=== PATIENT | male | born 1940 | race Caucasian/White ===

== ENCOUNTER 2021-02-12 10:01 | Inpatient (IN) | payer MEDICARE, BC ==
--- NOTE | 2021-02-12 11:00 | CT ---
EXAMINATION TYPE: CT brain quiana guzman DATE OF EXAM: 02/12/2021 COMPARISON: NONE HISTORY: headache and neck pain post fall over a week ago. CT DLP: 1685.1 mGycm. Automated Exposure Control for Dose Reduction was Utilized. TECHNIQUE: CT scan of the head and cervical spine are performed without contrast. FINDINGS: There is no acute intracranial hemorrhage or midline shift identified. Mild ventricular a nd sulcal prominence. Moderate low attenuation in the deep and periventricular white matter. The calv arium is intact. Mild mucosal thickening involving ethmoid and superior maxillary sinuses. The globes appear intact. Cervical spine is visualized in its entirety from C1 through upper thoracic levels and demonstrates s traightens alignment without evidence of acute fracture or dislocation. Prevertebral soft tissue dmitri ears within normal limits. The C1-C2 articulation is within normal limits on the coronal images. Ve rtebral body heights are maintained. Slight grade 1 anterolisthesis C3 on C4. Moderate to severe mult ilevel disc space narrowing C4-C5 through C6-C7 levels greatest at C6-C7 level. Hyxi-fo-jrcjphhe disc space narrowing C7-T1 level. Posterior spur disc complexes efface the anterior thecal sac C4-C5 thro ugh C6-C7 levels. Axial images show multilevel uncovertebral facet degenerative changes contributing to multilevel bilateral neural foraminal narrowing. Lung apices show no pneumothorax. Thyroid gland a ppears within normal limits. IMPRESSION: 1. There is no acute fracture or dislocation evident in the cervical spine. 2. No acute intracranial hemorrhage or midline shift is seen. Mild diffuse cerebral atrophy and moder ate chronic small vessel ischemic changes.
--- NOTE | 2021-02-12 11:07 | ED ---
General Adult HPI - General Chief complaint: Headache Stated complaint: headache Time Seen by Provider: 02/12/21 10:03 Source: patient, EMS, RN notes reviewed, old records reviewed Mode of arrival: EMS Limitations: no limitations - History of Present Illness Initial comments: 80-year-old male presenting for evaluation of headache. He had a fall about 2 weeks ago with head injury. He is on Eliquis. He reports headache since that time his primary care physician had recommended observation. Yesterday evening the headache became more severe, this was occipital radiating to the front. He denies any focal numbness or weakness. Injury occurred approximately 2 weeks ago. - Related Data Allergies Allergy/AdvReac Type Severity Reaction Status Date / Time fentanyl Allergy Hallucinati Verified 02/12/21 10:15 ons latex Allergy Rash/Hives Verified 02/12/21 10:15 morphine Allergy Hallucinati Verified 02/12/21 10:14 ons Review of Systems ROS Statement: Those systems with pertinent positive or pertinent negative responses have been documented in the HPI. ROS Other: All systems not noted in ROS Statement are negative. Past Medical History Past Medical History: Atrial Fibrillation, Cancer, Hypertension, Prostate Disorder History of Any Multi-Drug Resistant Organisms: None Reported Past Surgical History: Coronary Bypass/CABG, Prostate Surgery Additional Past Surgical History / Comment(s): Bypass 2014, urostomy 2018, Prostate CA Past Psychological History: No Psychological Hx Reported Smoking Status: Former smoker Past Alcohol Use History: Occasional Past Drug Use History: None Reported General Exam Limitations: no limitations General appearance: alert, in no apparent distress Head exam: Present: atraumatic, normocephalic Eye exam: Present: normal appearance, PERRL ENT exam: Present: normal exam Neck exam: Present: normal inspection. Absent: tenderness, meningismus Respiratory exam: Present: normal lung sounds bilaterally. Absent: respiratory distress, wheezes, rales Cardiovascular Exam: Present: regular rate, normal rhythm GI/Abdominal exam: Present: soft, other (Urostomy). Absent: distended, tenderness, guarding Extremities exam: Present: normal inspection, normal capillary refill. Absent: pedal edema Neurological exam: Present: alert, oriented X3, CN II-XII intact. Absent: motor sensory deficit Skin exam: Present: warm, dry, intact. Absent: cyanosis, diaphoretic Course Vital Signs 02/12/21 02/12/21 10:04 11:06 Temperature 97.8 F Pulse Rate 71 Respiratory 18 18 Rate Blood Pressure 134/89 O2 Sat by Pulse 95 Oximetry - Reevaluation(s) Reevaluation #1: 02/12/21 14:[address] Sampson who will admit. Medical Decision Making - Medical Decision Making 80-year-old male with headache status post fall. Head CT performed, negative for intracranial hemorrhage or mass effect, cervical spine negative for fracture subluxation. Patient is alert and oriented 1 or 2. He somewhat confused. I did attempt to contact his multiple times which was unsuccessful. Uncertain if this patient has a baseline dementia or if this is an acute change in his mentation. Because I'm unable to find family I did obtain laboratory testing which is pending and will admit awaiting reevaluation, and further clarification if this patient is altered or at baseline. - Lab Data Result diagrams: 02/12/21 13:39 Lab Results 02/12/21 Range/Units 13:39 WBC 6.9 (3.8-10.6) k/uL RBC 4.19 L (4.30-5.90) m/uL Hgb 12.4 L (13.0-17.5) gm/dL Hct 37.3 L (39.0-53.0) % MCV 89.0 (80.0-100.0) fL MCH 29.7 (25.0-35.0) pg MCHC 33.3 (31.0-37.0) g/dL RDW 15.5 (11.5-15.5) % Plt Count 219 (150-450) k/uL MPV 7.1 Neutrophils % 73 % Lymphocytes % 15 % Monocytes % 9 % Eosinophils % 2 % Basophils % 0 % Neutrophils # 5.0 (1.3-7.7) k/uL Lymphocytes # 1.0 (1.0-4.8) k/uL Monocytes # 0.6 (0-1.0) k/uL Eosinophils # 0.1 (0-0.7) k/uL Basophils # 0.0 (0-0.2) k/uL Disposition Clinical Impression: Headache, AMS (altered mental status) Disposition: ADMITTED IP TO THIS [facility] Condition: Stable Is patient prescribed a controlled substance at d/c from ED?: No Referrals: Nonstaff,Physician [Primary Care Provider] - 1-2 days Decision to Admit Reason: Admit from EC Decision Date: 02/12/21 Decision Time: 14:01
[2021-02-12] MEDS ORDERED: ACETAMINOPHEN TAB 325 MG TAB PO PRN (13:51)
[2021-02-12] MEDS ORDERED: NALOXONE 0.4 MG/ML 1 ML VIAL IV PRN (13:51)
[2021-02-12 13:52] LABS: Basophils % (A) 0 %; Eosinophils # (A) 0.1 k/uL (0-0.7); Eosinophils % (A) 2 %; HCT 37.3 % (39.0-53.0); HGB 12.4 gm/dL (13.0-17.5); Lymphocytes % (A) 15 %; MCH 29.7 pg (25.0-35.0); MCHC 33.3 g/dL (31.0-37.0); Mean Platelet Volume 7.1; Monocytes # (A) 0.6 k/uL (0-1.0); Monocytes % (A) 9 %; Neutrophils % (A) 73 %; Platelet Count 219 k/uL (150-450); RBC 4.19 m/uL (4.30-5.90); RDW 15.5 % (11.5-15.5); WBC 6.9 k/uL (3.8-10.6)
[2021-02-12 14:03] LABS: Albumin 3.5 g/dL (3.5-5.0); Calcium 8.6 mg/dL (8.4-10.2); Magnesium 2.2 mg/dL (1.6-2.3); Total Bilirubin 1.5 mg/dL (0.2-1.3); Total Protein 6.4 g/dL (6.3-8.2)
[2021-02-12] MEDS: SODIUM CHLORIDE 0.9% 1,000 ML IV SCH (16:59)
[2021-02-12] MEDS: ATORVASTATIN 80 MG TAB PO SCH (18:14)
[2021-02-12] MEDS: ISOSORBIDE MONONITRATE ER 60 MG TAB.ER.24H PO SCH (18:15)
[2021-02-12 18:25] LABS: Appearance,Urine Cloudy (Clear); Bacteria,Urine Moderate /hpf; Bilirubin,Urine Negative (Negative); Blood,Urine Trace (Negative); Color,Urine Yellow; Glucose,Urine (UA) Negative (Negative); Hyaline Casts,Urine 1 /lpf (0-2); Ketones,Urine Negative (Negative); Leukocyte Esterase,Urine Moderate (Negative); Mucus,Urine Rare /hpf; Nitrite,Urine Positive (Negative); Protein,Urine 1+ (Negative); RBC,Urine 5 /hpf (0-5); Specific Gravity,Urine 1.017 (1.001-1.035); Squamous Epithelial Cell,Urine <1 /hpf (0-4); Urobilinogen,Urine <2.0 mg/dL (<2.0); WBC,Urine 40 /hpf (0-5)
[2021-02-12] MEDS: APIXABAN 5 MG TAB PO SCH (19:58)
[2021-02-12] MEDS: LABETALOL 100 MG TAB PO SCH (19:59)
[2021-02-12] MEDS: amLODIPine 5 MG TAB PO SCH (19:59)
[2021-02-12] MEDS ORDERED: Magnesium Replacement Protocol 1 EACH MISC MISCELLANE PRN (20:31)
[2021-02-12] MEDS ORDERED: Potassium Replacement Protocol 1 EACH MISC MISCELLANE PRN (20:31)
--- NOTE | 2021-02-12 23:00 | HP ---
HISTORY AND PHYSICAL DATE OF SERVICE: 02/12/2021 CHIEF COMPLAINT: Weakness and headache and some confusion. HISTORY OF PRESENT ILLNESS: This 80-year-old gentleman with a past medical history of atrial fibrillation, hypertension, prostate cancer, also had a catheter inserted recently by urologist elsewhere because of urinary difficulties and prostate issues. The patient also had a fall about 2 weeks ago. The patient is on Eliquis. The patient is complaining of some headache. The patient was found to be confused and the patient admitted for further evaluation and treatment. A UTI was suspected. There is no history of fever, rigors. No loss of consciousness, seizures at this time. PAST MEDICAL HISTORY: History of atrial fibrillation, history of hypertension, history of prostate cancer and prostate disorder. MEDICATIONS: Home medications are Imdur ER, Norvasc, labetalol, Lasix Lipitor, Eliquis. Doses reviewed. ALLERGIES: FENTANYL, LATEX, MORPHINE. FAMILY HISTORY: Previous history of smoking. No history of alcohol. REVIEW OF SYSTEMS: ENT Diminished hearing and vision. CARDIOVASCULAR No angina or palpitations. RESPIRATORY No cough, no hemoptysis. GI No nausea, vomiting, or diarrhea. No dysuria or hematuria. NERVOUS No numbness or weakness. ALLERGY/IMMUNOLOGY No asthma or hayfever. MUSCULOSKELETAL As mentioned earlier. HEMATOLOGY/ONCOLOGY Negative. ENDOCRINE No history of diabetes or hypothyroidism. CONSTITUTIONAL As mentioned earlier. DERMATOLOGY Negative. RHEUMATOLOGY Negative, PSYCHIATRY As mentioned earlier. PHYSICAL EXAMINATION: The patient is conscious, confused, oriented x2. Pulse 63, blood pressure 163/89, respiration 14, temperature 97.9, pulse ox 97% on room air. HEENT: Conjunctivae normal. Oral mucosa moist. NECK: No jugular venous distention. No lymph node enlargement. CARDIOVASCULAR: S1, S2, muffled. No S3, no S4, RESPIRATORY: Diminished breath sounds at the bases. No rhonchi, no crackles. ABDOMEN: Soft, obese, nontender. LEGS: No edema, no swelling. NERVOUS SYSTEM: Higher functions mentioned earlier. Moves all four limbs. No focal motor or sensory deficits. LYMPHATICS: No lymph node in neck or axilla. SKIN: No rash. JOINTS: No active deforming arthropathy. LABS: WBC 6.2, hemoglobin 12.4, sodium 140, potassium 4. UA noted. ASSESSMENT: 1. Acute urinary tract infection with sepsis on presentation. 2. Change in mental status, acute metabolic encephalopathy. 3. Fall and gait dysfunction. 4. Generalized asthenia. 5. Anemia, normocytic, possibly related to chronic anemia. 6. History of atrial fibrillation. 7. History of hypertension. 8. History of prostate cancer. 9. Indwelling Lopez catheter, present on admission. 10.History of CAD, CABG. 11.Remote history of nicotine dependence. 12.Obesity with body mass index of 36.6. 13.FULL CODE. RECOMMENDATIONS: In this 80-year-old gentleman who presented with multiple complex medical issues, we will monitor the patient closely, continue the current management, continue symptomatic treatment. Will initiate Rocephin and will continue with the rest of the medication, PT OT evaluation, possible ECF rehab. Continue with cautious IV fluids. Otherwise, prognosis guarded. Further recommendations to follow. LONNY / KARY: [id number] /
--- NOTE | 2021-02-13 06:46 | XR ---
EXAMINATION TYPE: XR chest 1V portable DATE OF EXAM: 02/13/2021 CLINICAL HISTORY: Difficulty breathing and CHF. TECHNIQUE: Single AP portable upright view of the chest is obtained. COMPARISON: None FINDINGS: Cardiomegaly is present. Overlying sternal wires and mediastinal clips. Chronic parenchyma l changes without suspicious focal airspace opacity, pleural effusion, or pneumothorax seen bilateral ly. Osseous structures are intact. IMPRESSION: Chronic parenchymal changes and cardiomegaly without acute pulmonary process.
[2021-02-13 06:53] LABS: Basophils % (A) 1 %; Eosinophils % (A) 3 %; HCT 37.5 % (39.0-53.0); HGB 12.2 gm/dL (13.0-17.5); Lymphocytes % (A) 18 %; MCH 29.1 pg (25.0-35.0); MCHC 32.6 g/dL (31.0-37.0); MCV 89.2 fL (80.0-100.0); Mean Platelet Volume 7.2; Monocytes % (A) 9 %; Neutrophils % (A) 69 %; Platelet Count 229 k/uL (150-450); RBC 4.21 m/uL (4.30-5.90); RDW 15.7 % (11.5-15.5); WBC 5.6 k/uL (3.8-10.6)
[2021-02-13 06:54] LABS: Eosinophils # (A) 0.2 k/uL (0-0.7); Monocytes # (A) 0.5 k/uL (0-1.0); Neutrophils # (A) 3.8 k/uL (1.3-7.7)
[2021-02-13] MEDS: PANTOPRAZOLE 40 MG TABLET PO SCH (08:02)
[2021-02-13] MEDS: ATORVASTATIN 80 MG TAB PO SCH (08:02)
[2021-02-13] MEDS: APIXABAN 5 MG TAB PO SCH ×2 (08:02→20:46)
[2021-02-13] MEDS: THIAMINE 100 MG TAB PO SCH (08:02)
[2021-02-13] MEDS: FOLIC ACID 1 MG TAB PO SCH (08:02)
[2021-02-13] MEDS: LABETALOL 100 MG TAB PO SCH ×2 (08:03→20:45)
[2021-02-13] MEDS: amLODIPine 5 MG TAB PO SCH ×2 (08:03→20:46)
[2021-02-13] MEDS: MULTIVITAMINS, THERA 1 EACH TAB PO SCH (08:03)
[2021-02-13] MEDS: ISOSORBIDE MONONITRATE ER 60 MG TAB.ER.24H PO SCH (08:03)
[2021-02-13 08:18] LABS: African American GFR (CKD) 59 (>60 ml/min/1.73 sqM); Anion Gap 8 mmol/L; Blood Urea Nitrogen 27 mg/dL (9-20); Calcium 9.2 mg/dL (8.4-10.2); Carbon Dioxide 23 mmol/L (22-30); Chloride 111 mmol/L (98-107); Glucose 114 mg/dL (74-99); Non-African American GFR(CKD) 51 (>60 ml/min/1.73 sqM); Sodium 142 mmol/L (137-145)
[2021-02-13 08:25] LABS: Magnesium 2.4 mg/dL (1.6-2.3); Potassium 4.7 mmol/L (3.5-5.1)
--- NOTE | 2021-02-13 09:10 | P.CNNES ---
History of Present Illness Consult date: 02/13/21 Requesting physician: Uriah Deng Reason for Consult: alterd mental status History of Present Illness: This is an 80-year-old gentleman with medical history of atrial fibrillation on on eliquis, hypertension, coronary artery disease status post CABG, prostate cancer status post surgery who presented emergency department on 02/12/2021 after a fall about 2 weeks ago with a head injury. Some of the history is ob tained from medical records since patient is unable to provide with all history. He felt his headache is becoming more severe and noticing it in the occipital region radiating to the frontal. He notified his primary care physician who recommended observation. Patient stated he feels headaches is improving and feel it is mild currently. He said he feels he has bilateral posterior neck pain in middle region area. And has pain when turning his neck side to side. He denies of any focal weakness, numbness, visual disturbance, nausea, vomiting. He denies of difficulty getting his words out. Upon seeing him he was eating his breakfast without any issues and tolerating well. Per the ED team it is unsure if patient has baseline demenia or not and to what extend his confusion during his ED visit compared to his baseline. The ED team attempted to contact the family members but unsuccessful. Patient stated he has left leg weakness for at least two years since he had surgery but could not tell me what it was. He said he used to have back pain but denies any further back pain. He has been using a walker for the past two years and prior to that has been using a cane for at least 5 years. Patient home medication includes Eliquis 5 mg 1 tablet twice a day, epidural 80 mg daily, Lasix 1 tablet twice a day, labetalol, amlodipine, Imdur. Some of the workup in the hospital consisted of: Initial vital signs: Blood pressure 134/89, heart rate of 71, respiratory of 18, temperature of 97.8 Fahrenheit oral and pulse ox of 95% room air. During the hospital stay the patient's systolic blood pressure has been ranging in the 160s to 170s and diastolic is been ranging between 80s to 100. CT of the head is reported as there is no acute intracranial hemorrhage or midline shift is seen. Mild diffuse cerebral atrophy and moderate chronic small vessel ischemic changes. CT cervical spine is reported as no acute fracture or dislocation evident in the cervical spine. And the body of the report that is reported that there is moderate to severe multilevel disc space narrowing at C4 to C5 through C6 to C7 level greatest at C6 to C7. Mild to moderate disc space narrowing at the C7-T1 level. Initial white blood cell is 6.9 which is considered within normal limits. The hemoglobin was 12.4 and the repeat is 12.2. MCV is 89 which is considered within normal limits. Platelet level is 219,000 which is closer within normal limits. Sodium is 143 which is within normal limits. Creatinine is 1.21, calcium is 8.6, AST of 25 and ALT of 15 which are all within normal limits at. Aguillon virus PCR was not detected. Urinalysis is is nitrate is positive, leukocyte esterase was moderate, urine white blood cells for a urine bacteria was moderate which is suggestive of urinary tract infection. Review of Systems Review of system: The 12 point system was reviewed and apparent positive and negative per HPI. Past Medical History Past Medical History: Atrial Fibrillation, Cancer, Hypertension, Prostate Dis order Additional Past Medical History / Comment(s): Prostate cancer History of Any Multi-Drug Resistant Organisms: None Reported Past Surgical History: Coronary Bypass/CABG, Prostate Surgery Additional Past Surgical History / Comment(s): Bypass 2014, urostomy 2018, Prostate CA Past Psychological History: No Psychological Hx Reported Smoking Status: Former smoker Past Alcohol Use History: Occasional Past Drug Use History: None Reported - Past Family History unknown History Unknown: Yes Medications and Allergies Home Medications Medication Instructions Recorded Confirmed Type Apixaban [Eliquis] 5 mg PO BID 02/12/21 02/12/21 History Atorvastatin Calcium [Lipitor] 80 mg PO DAILY 02/12/21 02/12/21 History Furosemide [Lasix] 20 mg PO BID 02/12/21 02/12/21 History Isosorbide Mononitrate ER [Imdur] 60 mg PO DAILY 02/12/21 02/12/21 History Labetalol HCl 100 - 200 mg PO BID 02/12/21 02/12/21 History amLODIPine [Norvasc] 5 mg PO BID 02/12/21 02/12/21 History Allergies Allergy/AdvReac Type Severity Reaction Status Date / Time fentanyl Allergy Hallucinati Verified 02/12/21 14:19 ons latex Allergy Rash/Hives Verified 06/19/21 14:19 morphine Allergy Hallucinati Verified 02/12/21 14:19 ons Physical Examination - Vital Signs Vital Signs: Vital Signs Temp Pulse Pulse Resp BP BP Pulse Ox 02/13/21 05:20 98.3 F 71 16 168/103 95 02/12/21 20:00 98.9 F 73 16 178/98 95 02/12/21 17:45 97.9 F 63 14 163/89 97 02/12/21 11:06 18 02/12/21 10:04 97.8 F 71 18 134/89 95 Intake and Output 02/12/21 02/13/21 02/13/21 22:59 06:59 14:59 Intake Total 210 Output Total 400 Balance -190 Intake: Intake, IV Titration 210 Amount Sodium Chloride 0.9% 1, 160 000 ml @ 20 mls/hr IV . Q24H ANNIE Rx#:[id number] cefTRIAXone 1 gm In 50 Sodium Chloride 0.9% 50 ml @ 100 mls/hr IVPB Q24H ANNIE Rx#:[id number] Output: Urine 400 Other: Voiding Method Ileal Conduit (Right) # Voids 1 # Bowel Movements 0 GENERAL: The patient is lying in bed and is in mild to moderate acute distress. HENT: Normocephalic and atraumatic. CHEST: The heart rate is regular rate rhythm. No murmurs to auscultation. No carotid bruit bilaterally. LUNG: Clear to auscultation bilaterally no wheezing noted throughout. Not labored breathing. ABDOMEN/GI: Bowel sounds present in all 4 quadrants. No tenderness to palpation throughout. NEUROLOGICAL: Higher mental function: The patient is awake, alert, oriented to self. He stated he is in the hospital and with options he correctely chose the right hospital, year and month. He correctly chose the correct current [place] president. He is able to name objects correctly (pen, watch and glasses). Patient is following commands. No aphasia and no neglect. Cranial nerves: The pupils are round, equal and reactive to light and accommoda tion. Visual menendez are full to confrontation throughout. Extraocular movement is intact no nystagmus is noted. Facial sensation is normal to touch throughout. The facial strength is normal throughout. Hearing is moderately decreased bilaterally to hand rub. Tongue is midline and moved [id number] without any difficulty. No dysarthria is noted. Has tenderdness to touch over the middle and base of posterior neck. Has pain to moving his head side to side. Shoulder shrug is normal bilaterally. Motor: Gait is deferred because of weakness. The strength is left lower thigh extension/flexion is 5- while knee extension/flexion is 3-4 while ankle dorsiflexion/flexion is 4+ to 5- (according to patient this is old). Otherwise 5 over 5 throughout. Normal tone and bulk. Cerebellum: Normal finger to nose bilaterally. Sensation: Sensation is normal to touch throughout. Reflexes (right/left): 1-2+ throughout upper while 0-1 in lowers. Plantars are mute bilaterally. Results Aguillon virus PCR was not detected. - Laboratory Findings CBC and BMP: 02/13/21 06:25 02/13/21 06:25 Abnormal Lab Findings: Abnormal Labs 02/12/21 02/12/21 02/12/21 12:58 13:39 13:39 RBC 4.19 L Hgb 12.4 L Hct 37.3 L RDW Chloride 113 H BUN 23 H Glucose 107 H Total Bilirubin 1.5 H Urine Protein 1+ H Urine Blood Trace H Ur Leukocyte Esterase Moderate H Urine WBC 40 H Urine WBC Clumps Rare H Urine Bacteria Moderate H Urine Mucus Rare H 02/13/21 06:25 RBC 4.21 L Hgb 12.2 L Hct 37.5 L RDW 15.7 H Chloride BUN Glucose Total Bilirubin Urine Protein Urine Blood Ur Leukocyte Esterase Urine WBC Urine WBC Clumps Urine Bacteria Urine Mucus Assessment and Plan Assessment: This is an 80-year-old gentleman who has history of atrial fibrillation and is on Eliquis who had a fall 2 weeks ago and has had an as a result has been having headaches but denies any focal weakness or numbness. * Altered mental status likely due to septic encephalopathy as well as uncontrolled hypertension.--mentation improving (unsure if patient has underlying dementia/cognitive impairement). * Cephalgia Seems referred from neck pain. Also could be due to uncontrolled hypertension as well as underlying urinary tract infection. * Cervical spondylosis (moderate to severe C4 to C5, C6 to C7. Mild to moderate C7-T1.) * Left lower extremity weakness (according to patient had this for two years since a ?surgery and had history of back pain). * Acute urinary tract infection * Atrial fibrillation on Eliquis * Hypertension * History of Coronary artery disease status post CABG * History of prostate cancer status post surgery Plan: * CT of the head is reported as there is no acute intracranial hemorrhage or midline shift is seen. Mild diffuse cerebral atrophy and moderate chronic small vessel ischemic changes. * CT cervical spine is reported as no acute fracture or dislocation evident in the cervical spine. And the body of the report that is reported that there is moderate to severe multilevel disc space narrowing at C4 to C5 through C6 to C7 level greatest at C6 to C7. Mild to moderate disc space narrowing at the C 7-T1 level. * Ordered Lumbar CT because of left leg weakness since no imaging in our system and unsure exact surgery or history leading to his weakness. * I ordered TSH, vitamin B12, folate level and HbA1c (especially since he is areflexia of lower extremities). * Consulted Orthopedic surgical team. * PT and OT are consulted by the primary team. * I ordered the basic coagulation study PT, PTT and INR. * We'll defer the hypertension management to the primary team. * We'll defer the rest of the medical management to primary team. * Upon discharge the patient needs to follow-up with a neurologist within 1-2 weeks. The plan is discussed with the patient's nurse. Will attempt to contact the patient family members for more information. Thank you for the consultation. Vini Dickerson M.D. Neuro-hospitalist Time with Patient: Greater than 30
--- NOTE | 2021-02-13 10:57 | CT ---
EXAMINATION TYPE: CT lumbar spine wo con DATE OF EXAM: 02/13/2021 10:36 AM COMPARISON: None. HISTORY: low back pain, Lt leg weakness CT DLP: 2315 mGycm Automated exposure control for dose reduction was used. Unenhanced CT of the lumbar spine was performed. Bone and soft tissue window settings are submitted as well as coronal and sagittal reconstructions. There are 5 lumbar type vertebra identified. Lumbar spine shows straightening of alignment. Vertebral body heights are maintained. There is multilevel vacuum disc phenomenon. There is advanced disc spac e narrowing L4-L5 level. There is moderate to advanced disc space narrowing L3-L4 and L5-S1 levels. T here is mild disc space narrowing at L2-L3 level. There is mild to moderate disc space narrowing L1-L 2 level. Fairly moderate multilevel anterior and lateral spurring most prominent left L3-L4 level. Axial images at T12-L1 level appear within normal limits. Axial images at the L1-L2 level show mild broad disc bulge and vacuum disc phenomenon mildly effacing anterior thecal sac with mild left greater than right facet arthropathy effacing posterior lateral t hecal sac. There is mild bilateral neural foraminal narrowing. Axial images at the L2-L3 level to moderate broad-based posterior disc protrusion effacing the anteri or thecal sac. There is [id number] facet arthropathy and ligamentum flavum hypertrophy effacing the posterior lateral thecal sac. There is mild to moderate bilateral anterior inferior neural linda inal narrowing. Axial images at L3-L4 level show mild/moderate broad disc bulge and mild facet arthropathy bilaterall y. Mild effacement anterior thecal sac and moderate right with mild left-sided neural foraminal narro wing. Axial images at L4-L5 level show moderate right greater than left facet arthropathy. Posterior spur d isc complex. Mild to moderate right greater than left bilateral neural foraminal narrowing. Axial images at L5-S1 level shows central spur disc complex and moderate facet arthropathy. Mild to m oderate bilateral neural foraminal narrowing. Asymmetric mild/moderate atrophy of the left iliopsoas muscle. 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 Metallic hardware from left hip arthroplasty noted on localizer. Numerous brachytherapy seeds in the prostate overlying pubic symphysis. IMPRESSION: Straightening of lumbar spine with multilevel moderate degenerative changes as detailed a ciara.
[2021-02-13 11:11] LABS: INR 1.1 (<1.2); Partial Thromboplastin Time 24.6 sec (22.0-30.0); Prothrombin Time 11.5 sec (9.0-12.0)
[2021-02-13] MEDS: SODIUM CHLORIDE 0.9% 1,000 ML IV SCH (15:51)
[2021-02-13 17:29] LABS: Folate, Serum >24.0 ng/mL
--- NOTE | 2021-02-13 18:06 | P.CNOR ---
History of Present Illness - [facility] Consult date: 02/13/21 History of present illness: 80 yo male presented to hospital yesterday after a fall day before last. He states he lost his balance and fell on to his R hip and buttock region. He states no LOC but unsure of BHT with the fall. He states pain in his R hip and buttock region that seems better. What startled him was that he could not get up after because his left leg seemed weak. He was brought to the ED for eval. He complaints today of minimal pain in the hips. States no back or buttock pain as of right now. He states that his LLE seems somewhat weaker and he has trouble lifting it off the bed right now. He denies any bowel or bladder issues. He does have a singh currently. He had a BM yesterday and was able to control it and feel it. He denies any genital numbness/tingling. He denies any LUKE, N V, SOB, CP. Review of Systems its 14 point review systems completed as stated in history. All of the systems of your negative. Past Medical History Past Medical History: Atrial Fibrillation, Cancer, Hypertension, Prostate Disorder Additional Past Medical History / Comment(s): Prostate cancer History of Any Multi-Drug Resistant Organisms: None Reported Past Surgical History: Coronary Bypass/CABG, Prostate Surgery Additional Past Surgical History / Comment(s): Bypass 2014, urostomy 2018, Prostate CA Past Psychological History: No Psychological Hx Reported Smoking Status: Former smoker Past Alcohol Use History: Occasional Past Drug Use History: None Reported - Past Family History unknown History Unknown: Yes Medications and Allergies Home Medications Medication Instructions Recorded Confirmed Type Apixaban [Eliquis] 5 mg PO BID 02/12/21 02/12/21 History Atorvastatin Calcium [Lipitor] 80 mg PO DAILY 02/12/21 02/12/21 History Furosemide [Lasix] 20 mg PO BID 02/12/21 02/12/21 History Isosorbide Mononitrate ER [Imdur] 60 mg PO DAILY 02/12/21 02/12/21 History Labetalol HCl 100 - 200 mg PO BID 02/12/21 02/12/21 History amLODIPine [Norvasc] 5 mg PO BID 02/12/21 02/12/21 History Allergies Allergy/AdvReac Type Severity Reaction Status Date / Time fentanyl Allergy Hallucinati Verified 02/12/21 14:19 ons latex Allergy Rash/Hives Verified 02/12/21 14:19 morphine Allergy Hallucinati Verified 02/12/21 14:19 ons Physical Examination Osteopathic Statement: *. No significant issues noted on an osteopathic structural exam other than those noted in the History and Physical/Consult. on exam the patient is alert and oriented times three appears well nourished well hydrated and theres no acute distress. He does not appear septic. He follows commands well. At this time he has no pain with logroll of bilateral hips he has no pain with palpation of the cervical thoracic or lumbar spine he does have some difficulty moving his left lower extremity at this time. Upper extremities bilaterally have five out of five strength with no focal deficits in all major muscle groups. Upper extremity show 2/4 DTR all bilaterally palpable pulses distally and neurovascular intact. Negative Hoffmans and negative clonus. Lower extremities bilaterallyOn the right hand side of the patient has 5/5 strength and all major muscle groups. In the left lower extremity the patient has 5/5 strength and all major muscle groups except for difficulty with hip flexion on the left which is four out of five. He has no clonus bilaterally and his lower extremities Rovinsky is is down going negative and theres no Homans. Pulses are palpable. Some edema in LE b/l, non pitting. No erythema or discorloration. Pt refused to walk in room during exam or sit at bedside. Neg SLR b/l. No tensioning signs. Results CT of the C and L spine is reviewed. IN the cervical spine there is spondylosis through the C spine with C4-5 grade I anterior listhesis. There is C4-7 spondylosis. C0-1 and C1-2 appear stable. No fracture or dislocation noted. CT of the L spine is reviewed there is vacuum disc as well as spondylosis of L1- S1. There appears to be fusion of L4-5 which is either old or uninstrumented or is a result of autofusion. There is no fracture or dislocation noted. There is no lesions noted. - Labs Labs: Abnormal Lab Results - Last 24 Hours (Table) 02/12/21 02/13/21 02/13/21 Range/Units 12:58 06:25 06:25 RBC 4.21 L (4.30-5.90) m/uL Hgb 12.2 L (13.0-17.5) gm/dL Hct 37.5 L (39.0-53.0) % RDW 15.7 H (11.5-15.5) % ESR (0-15) mm/hr Chloride 111 H (98-107) mmol/L BUN 27 H (9-20) mg/dL Creatinine 1.29 H (0.66-1.25) mg/dL Glucose 114 H (74-99) mg/dL Magnesium 2.4 H (1.6-2.3) mg/dL C-Reactive Protein (<1.0) mg/dL Urine Protein 1+ H (Negative) Urine Blood Trace H (Negative) Ur Leukocyte Esterase Moderate H (Negative) Urine WBC 40 H (0-5) /hpf Urine WBC Clumps Rare H (None) /hpf Urine Bacteria Moderate H (None) /hpf Urine Mucus Rare H (None) /hpf 02/13/21 02/13/21 Range/Units 06:25 06:25 RBC (4.30-5.90) m/uL Hgb (13.0-17.5) gm/dL Hct (39.0-53.0) % RDW (11.5-15.5) % ESR 41 H (0-15) mm/hr Chloride (98-107) mmol/L BUN (9-20) mg/dL Creatinine (0.66-1.25) mg/dL Glucose (74-99) mg/dL Magnesium (1.6-2.3) mg/dL C-Reactive Protein 7.6 H (<1.0) mg/dL Urine Protein (Negative) Urine Blood (Negative) Ur Leukocyte Esterase (Negative) Urine WBC (0-5) /hpf Urine WBC Clumps (None) /hpf Urine Bacteria (None) /hpf Urine Mucus (None) /hpf Microbiology - Last 24 Hours (Table) 02/12/21 12:58 Urine Culture - Preliminary Urine,Voided H & H 02/12/21 02/13/21 Range/Units 13:39 06:25 Hgb 12.4 L 12.2 L (13.0-17.5) gm/dL Hct 37.3 L 37.5 L (39.0-53.0) % Coagulation 02/13/21 Range/Units 10:45 INR 1.1 (<1.2) Result Diagrams: 02/13/21 06:25 02/13/21 06:25 Assessment and Plan Assessment: 80 yo male s/p ffs with LLE weakness and back pain Complex medical patient Plan: .Appreciate consult .Cont with medical treatment with pain control, antiiflammatories, gabapentin if warrented and possible steroids depending on pt medical status . no emergent surgery indicated currently . multilevel spondylosis is chronic finding and could have been exacerbated. If pt does not progress would recommend MRI of L spine to eval for stenosis. . Thank you very much for this consultation. We will follow the patient during his stay.
--- NOTE | 2021-02-13 20:20 | PN ---
PROGRESS NOTE DATE OF SERVICE: 02/13/2021 This 80-year-old gentleman admitted with weakness and confusion is being closely monitored. Patient is thought to have acute urinary tract infection with sepsis. Patient closely monitored at this time. The patient is apparently living in an AFC home and lumbar spine CAT scan has been done today which showed evidence of multilevel moderate DJD. The patient possibly had underlying dementia after the recent stroke. PAST MEDICAL HISTORY: Reviewed. REVIEW OF SYSTEMS: Cardiovascular: No angina. No palpitations. Respiration: As mentioned earlier. GI as mentioned earlier. : No dysuria. NERVOUS SYSTEM: As mentioned earlier. CURRENT MEDICATIONS: Reviewed and include: Tylenol No.3, Norvasc, Eliquis, Rocephin, Imdur, Narcan. Doses are reviewed. PHYSICAL EXAMINATION: Patient is alert and oriented times three. Pulse 73, blood pressure 136/92, respiration 20, temperature 97.9, pulse ox 98% on room air. HEENT: Conjunctivae normal. NECK: No JVD. CARDIOVASCULAR: S1, S1 muffled. RESPIRATORY SYSTEM: Breath sounds diminished at the bases. A few scattered rhonchi and crackles. ABDOMEN: Soft. NERVOUS SYSTEM: Diffusely weak. LABS: Creatinine 1.9 and hemoglobin 12.2. UA noted. Cultures are pending so far. ASSESSMENT: 1. Acute urinary tract infection with sepsis present on admission. 2. Change in mental status acute metabolic encephalopathy. 3. Possible acute renal failure. 4. History of recent stroke. 5. Fall and gait dysfunction. 6. Generalized asthenia. 7. Anemia, normocytic anemia, possibly related to chronic anemia. 8. History of atrial fibrillation. 9. History of hypertension. 10.History of prostate cancer. 11.History of indwelling Lopez catheter present on admission. 12.History of coronary artery disease, coronary artery bypass grafting. 13.Remote history of nicotine dependence. 14.Obesity with body mass index of 36.6. 15.FULL CODE. RECOMMENDATIONS AND DISCUSSION: I recommend to continue current medications, management and symptomatic treatment. Repeat labs. Otherwise, I would avoid nephrotoxic medications and continue the antibiotics. Await cultures. PT/OT evaluation. terrazzo worker to address social situation and concerns of the patient's daughter and family. Chest x-ray showed some cardiomegaly. We will increase the fluids 75 mL/hour and continue to monitor. Further recommendations to follow. MMODL / IJN: [id number] /
[2021-02-13 22:53] LABS: Hemoglobin A1C 5.9 % (4.0-6.0)
[2021-02-14] MEDS: PANTOPRAZOLE 40 MG TABLET PO SCH (07:55)
[2021-02-14] MEDS: APIXABAN 5 MG TAB PO SCH ×2 (07:55→20:44)
[2021-02-14] MEDS: ISOSORBIDE MONONITRATE ER 60 MG TAB.ER.24H PO SCH (07:56)
[2021-02-14] MEDS: amLODIPine 5 MG TAB PO SCH ×2 (07:56→20:44)
[2021-02-14] MEDS: LABETALOL 100 MG TAB PO SCH ×2 (07:56→20:44)
[2021-02-14] MEDS: ATORVASTATIN 80 MG TAB PO SCH (07:56)
--- NOTE | 2021-02-14 08:04 | P.PN ---
Subjective Progress Note Date: 02/14/21 Patient seen and examined is doing fairly well as morning he complains of some pain in his buttock on the right and bruising. He states this happened with this fall. He denies any other issues. States he still has some weakness in his left lower extremity was able to lift it up off the bed he has not been out of bed yet. Patient has some baseline dementia as well. He denies any perineal numbness or tingling he denies any bowel or bladder issues right now he does have a condom catheter in place. Objective - Vital Signs Vital signs: Vital Signs Temp 98.1 F 02/14/21 05:00 Pulse 81 02/14/21 05:00 Resp 16 02/14/21 05:00 BP 165/100 02/14/21 05:00 Pulse Ox 94 L 02/14/21 05:00 Intake & Output 02/13/21 02/14/21 02/14/21 18:59 06:59 18:59 Intake Total 1250 Output Total 500 1800 Balance -500 -550 Intake: Intake, IV Titration 950 Amount Sodium Chloride 0.9% 1, 900 000 ml @ 75 mls/hr IV . [id number] ANNIE Rx#:[id number] cefTRIAXone 1 gm In 50 Sodium Chloride 0.9% 50 ml @ 100 mls/hr IVPB Q24HR ANNIE Rx#:[id number] Oral 300 Output: Urine 500 1800 Other: Voiding Method Ileal Conduit (Right) Ileal Conduit (Right) - Exam Patient is alert and oriented 3 appears well-nourished well-hydrated is in no acute distress. They does not appear septic. On exam the patient has no tenderness to palpation of her thoracic or lumbar spine. There is no edema or ballottement sign. Lower extremities with 5 out of 5 strength in all major muscle groups he does have some weakness in hip flexion on the left however he is able to achieve 3+ to 4 minus strength Upper extremities show 5/5 strength in all major muscle groups. There is FROM that is painless of the b/l UE and LE in all major joints. They are intact to light touch sensation in L2 to S1 nerve distribution. Patient has palpable dorsalis pedis was posterior tibial pulses. Compartments are soft and compressible. Patient shows a negative Homans, Forrest's, negative Babinski's negative clonus bilaterally. negative straight leg raise bilaterally. No tensioning signs. Cranial nerves II through XII are grossly intact. Overall alignment is well-maintained in the sagittal coronal planes. DTR 2/4 all No pain with logroll right or left hip no pain with palpation. - Labs CBC & Chem 7: 02/13/21 06:25 02/13/21 06:25 Labs: Abnormal Lab Results - Last 24 Hours (Table) 02/13/21 02/13/21 02/13/21 Range/Units 06:25 06:25 06:25 ESR 41 H (0-15) mm/hr Chloride 111 H (98-107) mmol/L BUN 27 H (9-20) mg/dL Creatinine 1.29 H (0.66-1.25) mg/dL Glucose 114 H (74-99) mg/dL Magnesium 2.4 H (1.6-2.3) mg/dL C-Reactive Protein 7.6 H (<1.0) mg/dL Microbiology - Last 24 Hours (Table) 02/12/21 21:17 Blood Culture - Preliminary Blood No Growth after 24 hours 02/12/21 12:58 Urine Culture - Preliminary Urine,Voided Gram Neg Bacilli Assessment and Plan Assessment: 80 yo male s/p ffs with LLE weakness and back pain Complex medical patient Plan: .Appreciate consult .Cont with medical treatment with pain control, antiiflammatories, gabapentin if warrented and possible steroids depending on pt medical status . no emergent surgery indicated currently . multilevel spondylosis is chronic finding and could have been exacerbated. If pt does not progress would recommend MRI of L spine to eval for stenosis. . Thank you very much for this consultation. We will follow the patient during his stay. . Continue supportive care
[2021-02-14] MEDS: Acetaminophen-Codeine 300-30mg TAB PO PRN ×2 (11:25→20:48)
[2021-02-14] MEDS: FOLIC ACID 1 MG TAB PO SCH (11:25)
[2021-02-14] MEDS: MULTIVITAMINS, THERA 1 EACH TAB PO SCH (11:26)
[2021-02-14] MEDS: THIAMINE 100 MG TAB PO SCH (11:26)
[2021-02-14] MEDS ORDERED: LOPERAMIDE 2 MG CAP PO PRN (12:21)
[2021-02-14] MEDS: SODIUM CHLORIDE 0.9% 1,000 ML IV SCH (12:45)
--- NOTE | 2021-02-14 15:41 | PN ---
PROGRESS NOTE DATE OF SERVICE: 02/14/2021 INTERVAL HISTORY: This 80-year-old gentleman who was admitted with acute UTI with sepsis also had change in mental status. No chest pain. No palpitations. No fever. Orthopedic Surgery is also following the patient closely. PHYSICAL EXAMINATION: GENERAL: Patient is alert and oriented times three. VITAL SIGNS: Pulse 70, blood pressure 169/104, respirations 20, temperature 97.9, pulse ox 94% on room air. HEENT: Conjunctivae normal. Oral mucosa moist. NECK: No jugular venous distention. No carotid bruits. RESPIRATORY: Breath sounds diminished at the bases. HEART: S1 and S2, muffled. ABDOMEN: Soft. EXTREMITIES: No edema, no swelling. NERVOUS: Diffusely weak. LABS: Creatinine 1.29. Other labs are noted. ASSESSMENT: 1. Acute urinary tract infection with possible sepsis present on admission with gram- negative bacilli. Final ID pending. Related to indwelling Lopez catheter. 2. Change in mental status with acute metabolic encephalopathy. 3. Acute renal failure possibly. 4. History of recent stroke. 5. Fall and gait dysfunction. 6. Generalized asthenia. 7. Anemia, normocytic anemia, possibly related to chronic anemia. 8. History of atrial fibrillation. 9. History of hypertension. 10.History of prostate disorder. 11.History of indwelling Lopez catheter present on admission. 12.History of CAD, CABG. 13.Remote history of nicotine dependence. 14.Obesity with body mass of 36.6. 15.FULL CODE. RECOMMENDATIONS AND DISCUSSION: I recommend to continue current management and continue symptomatic treatment. Await final ID of the organisms. Otherwise continue rest of the medications. PT OT evaluation. firestop/containment worker to work with the family regarding discharge planning. Guarded prognosis. Further recommendations to follow. MMODL / IJN: [id number] /
--- NOTE | 2021-02-14 17:35 | P.PN ---
Subjective Progress Note Date: 02/14/21 The patient is seen at beside and he feels he is doing better today compared to initial presentation. He feels his pain in his right hip is improving compared to initial presentation. He denies of any new neurological complaint. Objective - Vital Signs Vital signs: Vital Signs Temp 97.9 F 02/14/21 11:33 Pulse 70 02/14/21 11:33 Resp 22 02/14/21 11:33 BP 169/104 02/14/21 11:33 Pulse Ox 95 02/14/21 11:33 Intake & Output 02/13/21 02/14/21 02/14/21 18:59 06:59 18:59 Intake Total 1250 Output Total 500 1800 300 Balance -500 -550 -300 Intake: Intake, IV Titration 950 Amount Sodium Chloride 0.9% 1, 900 000 ml @ 75 mls/hr IV . [id number] ANNIE Rx#:[id number] cefTRIAXone 1 gm In 50 Sodium Chloride 0.9% 50 ml @ 100 mls/hr IVPB Q24HR ANNIE Rx#:[id number] Oral 300 Output: Urine 500 1800 300 Other: Voiding Method Ileal Conduit (Right) Ileal Conduit (Right) Ileal Conduit (Right) # Bowel Movements 1 - Exam GENERAL: The patient is lying in bed and is in mild to moderate acute distress. NEUROLOGICAL: Higher mental function: The patient is awake, alert, oriented to self, place and time. He is able to name objects correctly (pen, watch and glasses). Patient is following commands. No aphasia and no neglect. Cranial nerves: The pupils are round, equal and reactive to light and accommodation. Visual menendez are full to confrontation throughout. Extraocular movement is intact no nystagmus is noted. Facial sensation is normal to touch throughout. The facial strength is normal throughout. Hearing is moderately decreased bilaterally to hand rub. Tongue is midline and moved [id number] without any difficulty. No dysarthria is noted. Has tenderdness to touch over the middle and base of posterior neck. Has pain to moving his head side to side. Shoulder shrug is normal bilaterally. Motor: Gait is deferred. The strength is left lower thigh extension/flexion is 5- while knee extension/flexion is 3-4 while ankle dorsiflexion/flexion is 4+ to 5- (according to patient this is old) and is limited because of pain (mostly hip but feels pain is somewhat better today). Otherwise 5 over 5 throughout. Normal tone and bulk. Cerebellum: Normal finger to nose bilaterally. Sensation: Sensation is normal to touch throughout. Reflexes (right/left): 1-2+ throughout upper while 0-1 in lowers. Plantars are mute bilaterally. - Labs CBC & Chem 7: 02/13/21 06:25 02/13/21 06:25 Labs: Microbiology - Last 24 Hours (Table) 02/12/21 21:17 Blood Culture - Preliminary Blood No Growth after 24 hours 02/12/21 12:58 Urine Culture - Preliminary Urine,Voided Gram Neg Bacilli Assessment and Plan Assessment: This is an 80-year-old gentleman who has history of atrial fibrillation and is on Eliquis who had a fall 2 weeks ago and has had an as a result has been having headaches but denies any focal weakness or numbness. * Altered mental status likely due to septic encephalopathy as well as uncontrolled hypertension.--mentation improved (unsure if patient has underlying dementia/cognitive impairement). * Cephalgia Seems referred from neck pain. Also could be due to uncontrolled hypertension as well as underlying urinary tract infection--headache resolved. * Cervical spondylosis (moderate to severe C4 to C5, C6 to C7. Mild to moderate C7-T1.) * Left lower extremity weakness (according to patient had this for two years since a ?surgery and had history of hip and back pain). * Moderate Lumbosacral spondylosis (L2-S1) * Acute urinary tract infection * Atrial fibrillation on Eliquis * Hypertension * History of Coronary artery disease status post CABG * History of prostate cancer status post surgery Plan: * CT of the head is reported as there is no acute intracranial hemorrhage or midline shift is seen. Mild diffuse cerebral atrophy and moderate chronic small vessel ischemic changes. * CT cervical spine is reported as no acute fracture or dislocation evident in the cervical spine. And the body of the report that is reported that there is moderate to severe multilevel disc space narrowing at C4 to C5 through C6 to C7 level greatest at C6 to C7. Mild to moderate disc space narrowing at the C7-T1 level. * CT lumbar is reported as straightening of the lumbar spine with multilevel moderate degenerative changes as detailed above. In the body of the report is mentioned that the patient has moderate broad-based posterior disc protrusion over the L2-L3. There is also mild to moderate over L3-L4. L4-L5 shows moderate right greater than the left. L4-L5 shows moderate facet arthropathy with mild to moderate bilateral neuroforaminal narrowing. * TSH: 1.73, folate >24.0 (both are normal). HbA1c: 5.9 (normal). * Vitamin B12: 321 (low normal). Therefore I place the patient on Vitamin B12 1000mcg daily. * Consulted Orthopedic surgical team. No acute intervention. * PT and OT are consulted. * We'll defer the hypertension management to the primary team. * We'll defer the rest of the medical management to primary team. * Upon discharge the patient needs to follow-up with a neurologist within 1-2 weeks. The plan is discussed with the patient's nurse. I attempted to contact the patient's via phone but no response and mailbox was full. Per the nurse he is pending placement since has a hard time taking care of him. There is no further neurological work-up Vini Dickerson M.D. Neuro-hospitalist Time with Patient: Less than 30
[2021-02-14] MEDS: hydrALAZINE HCL 50 MG TAB PO SCH (20:44)
[2021-02-14] MEDS ORDERED: HALOPERIDOL LACTATE 5 MG/ML 1 ML VIAL IM STA (22:32)
--- NOTE | 2021-02-15 07:57 | ECHOF ---
Referral Reason:chf MEASUREMENTS -------- HEIGHT: 188.0 cm WEIGHT: 129.3 kg BP: 165/103 RVIDd: 4.0 cm (< 3.3) IVSd: 2.0 cm (0.6 - 1.1) LVIDd: 5.2 cm (3.9 - 5.3) LVPWd: 1.8 cm (0.6 - 1.1) IVSs: 2.5 cm LVIDs: 3.9 cm LVPWs: 1.9 cm Ao Diam: 3.7 cm (2.0 - 3.7) AV Cusp: 2.4 cm (1.5 - 2.6) LA Diam: 5.7 cm (2.7 - 3.8) MV EXCURSION: 23.892 mm (> 18.000) MV EF SLOPE: 131 mm/s (70 - 150) EPSS: 0.8 cm RAP: 5.00 mmHg RVSP: 46.10 mmHg FINDINGS -------- This was a technically difficult study with suboptimal views. The left ventricular size is normal. There is severe concentric left ventricular hypertrophy. Ove rall left ventricular systolic function is moderate-severely impaired with, an EF between 30 - 35 %. Septal wall motion is delayed and consistent with prior cardiac surgery. The right ventricle is moderately enlarged. The left atrium is markedly dilated. The right atrium is mildly enlarged. Attempted Lumison. Interatrial and interventricular septum intact. The aortic valve is trileaflet and appears structurally normal. There is mild aortic valve sclerosi s. There is no evidence of aortic regurgitation. There is no evidence of aortic stenosis. Mild mitral annular calcification present. Moderate mitral regurgitation is present. Severe tricuspid regurgitation present. There is moderate pulmonary hypertension. The right ventr icular systolic pressure, as measured by Doppler, is 46.10mmHg. There is no pulmonic regurgitation present. The aortic root size is normal. IVC Not well visulized. There is no pericardial effusion. CONCLUSIONS -------- 1. The left ventricular size is normal. 2. There is severe concentric left ventricular hypertrophy. 3. Overall left ventricular systolic function is moderate-severely impaired with, an EF between 30 - 35 %. 4. The right ventricle is moderately enlarged. 5. The left atrium is markedly dilated. 6. The right atrium is mildly enlarged. 7. There is mild aortic valve sclerosis. 8. Mild mitral annular calcification present. 9. Moderate mitral regurgitation is present. 10. Severe tricuspid regurgitation present. 11. There is moderate pulmonary hypertension. 12. The right ventricular systolic pressure, as measured by Doppler, is 46.10mmHg. FOAM GUN OPERATOR: Kala Mendoza RDCS
[2021-02-15] MEDS: hydrALAZINE HCL 50 MG TAB PO SCH ×3 (08:57→20:28)
[2021-02-15] MEDS: amLODIPine 5 MG TAB PO SCH ×2 (08:57→20:28)
[2021-02-15] MEDS: ATORVASTATIN 80 MG TAB PO SCH (08:57)
[2021-02-15] MEDS: CYANOCOBALAMIN 500 MCG TAB PO SCH (08:57)
[2021-02-15] MEDS: APIXABAN 5 MG TAB PO SCH ×2 (08:57→20:28)
[2021-02-15] MEDS: PANTOPRAZOLE 40 MG TABLET PO SCH (08:57)
[2021-02-15] MEDS: ISOSORBIDE MONONITRATE ER 60 MG TAB.ER.24H PO SCH (08:58)
[2021-02-15] MEDS: LABETALOL 100 MG TAB PO SCH ×2 (08:58→20:34)
[2021-02-15] MEDS ORDERED: MECLIZINE 12.5 MG TAB PO PRN (11:21)
[2021-02-15 12:06] LABS: Basophils % (A) 1 %; Eosinophils # (A) 0.2 k/uL (0-0.7); Eosinophils % (A) 4 %; HCT 40.9 % (39.0-53.0); HGB 13.2 gm/dL (13.0-17.5); Hypochromasia Slight; Lymphocytes # (A) 0.8 k/uL (1.0-4.8); Lymphocytes % (A) 18 %; MCH 29.5 pg (25.0-35.0); MCHC 32.3 g/dL (31.0-37.0); MCV 91.3 fL (80.0-100.0); Mean Platelet Volume 7.5; Monocytes # (A) 0.4 k/uL (0-1.0); Monocytes % (A) 8 %; Neutrophils # (A) 3.3 k/uL (1.3-7.7); Neutrophils % (A) 69 %; Platelet Count 247 k/uL (150-450); RBC 4.48 m/uL (4.30-5.90); RDW 15.2 % (11.5-15.5); WBC 4.8 k/uL (3.8-10.6)
[2021-02-15 12:28] LABS: ALT 28 U/L (4-49); African American GFR (CKD) 71 (>60 ml/min/1.73 sqM); Anion Gap 4 mmol/L; Blood Urea Nitrogen 23 mg/dL (9-20); Calcium 9.2 mg/dL (8.4-10.2); Carbon Dioxide 24 mmol/L (22-30); Chloride 111 mmol/L (98-107); Globulin 3.4 g/dL; Glucose 103 mg/dL (74-99); Non-African American GFR(CKD) 61 (>60 ml/min/1.73 sqM); Sodium 139 mmol/L (137-145)
[2021-02-15 12:36] LABS: Albumin 3.5 g/dL (3.5-5.0); Potassium 4.8 mmol/L (3.5-5.1); Total Protein 6.9 g/dL (6.3-8.2)
[2021-02-15 12:37] LABS: AST 61 U/L (17-59); Alkaline Phosphatase 78 U/L (38-126)
[2021-02-15] MEDS: THIAMINE 100 MG TAB PO SCH (12:43)
[2021-02-15] MEDS: FOLIC ACID 1 MG TAB PO SCH (12:43)
[2021-02-15] MEDS: MULTIVITAMINS, THERA 1 EACH TAB PO SCH (12:43)
--- NOTE | 2021-02-15 18:48 | PN ---
PROGRESS NOTE DATE OF SERVICE: 02/15/2021. HISTORY: This 80-year-old gentleman who was admitted with acute UTI versus sepsis is being closely monitored. The patient last night had some change in mental status possibly indicating acute delirium. Multiple consultants following the patient closely. A 2 D echo with Doppler showed ejection fraction 30 35%. Subtitle wall motion abnormalities. PAST MEDICAL HISTORY: Reviewed. REVIEW OF SYSTEMS: CARDIOVASCULAR SYSTEM: No angina. RESPIRATORY: No cough. GI: As mentioned. : No dysuria or hematuria. NERVOUS SYSTEM: As mentioned earlier. CURRENT MEDICATIONS: Reviewed include Tylenol No.3 Norvasc, Eliquis, Lipitor, Rocephin, vitamin B12, folic acid. Doses noted. PHYSICAL EXAMINATION: Patient is alert, oriented x3. Pulse 73, blood pressure 160/83, respiration 18, temperature 97.8, pulse ox 94% on room air HEENT: Conjunctivae normal. NECK: Supple. CARDIAC: S1 and S2 muffled. LUNGS: Breath sounds diminished. ABDOMEN: Soft. NERVOUS SYSTEM: No weakness. LABS: WBC 4.2, hemoglobin 13.2. Other labs are noted. Final culture is still showing gram- negative bacilli. ASSESSMENT: 1. Acute urinary tract infection with possible sepsis present on admission with gram- negative bacilli, final ID pending, related to indwelling Lopez catheter. 2. Change in mental status acute metabolic encephalopathy. 3. CHF with chronic systolic dysfunction, ejection fraction 30 to 35%. 4. Acute renal failure possibly present on admission. 5. History of recent stroke. 6. Fall and gait dysfunction. 7. Generalized asthenia. 8. Acute delirium. 9. Anemia, normocytic anemia, possibly related chronic anemia. 10.History of atrial fibrillation. 11.History of hypertension. 12.History of prostate disorder. 13.History of delirium. Lopez catheter present on admission. 14.History of CAD, CABG. 15.Remote history of nicotine dependence obesity with body mass index of 36.6. RECOMMENDATIONS AND DISCUSSION: This is an 80-year-old woman who presented with multiple complex medical issues, we will monitor the patient closely. Continue the current management and symptomatic treatment. Otherwise at this time continue the antibiotics. Await final ID of the organism. Closely follow with multiple consultants. PT OT evaluation, possible ECF rehab. Guarded prognosis. Further recommendations to follow. Also recommend Cardiology consultation for the low ejection fraction. Also the patient has had significant cardiac issues previously. Prognosis guarded. Further recommendations to follow. MMODL / IJN: [id number] /
[2021-02-15] MEDS: QUEtiapine 25 MG TAB PO SCH (20:29)
[2021-02-16 05:57] LABS: Basophils % (A) 1 %; Eosinophils # (A) 0.2 k/uL (0-0.7); Eosinophils % (A) 4 %; Hypochromasia Slight; Lymphocytes # (A) 0.9 k/uL (1.0-4.8); Lymphocytes % (A) 15 %; MCH 28.6 pg (25.0-35.0); MCHC 31.5 g/dL (31.0-37.0); MCV 90.9 fL (80.0-100.0); Mean Platelet Volume 6.9; Monocytes # (A) 0.4 k/uL (0-1.0); Monocytes % (A) 7 %; Neutrophils % (A) 72 %; Platelet Count 225 k/uL (150-450); RBC 4.18 m/uL (4.30-5.90); RDW 15.6 % (11.5-15.5); WBC 5.5 k/uL (3.8-10.6)
[2021-02-16] MEDS: ISOSORBIDE MONONITRATE ER 60 MG TAB.ER.24H PO SCH (08:05)
[2021-02-16] MEDS: APIXABAN 5 MG TAB PO SCH ×2 (08:05→21:31)
[2021-02-16] MEDS: LABETALOL 100 MG TAB PO SCH ×2 (08:05→21:37)
[2021-02-16] MEDS: hydrALAZINE HCL 50 MG TAB PO SCH ×3 (08:05→21:31)
[2021-02-16] MEDS: amLODIPine 5 MG TAB PO SCH (08:05)
[2021-02-16] MEDS: PANTOPRAZOLE 40 MG TABLET PO SCH (08:06)
[2021-02-16] MEDS: ATORVASTATIN 80 MG TAB PO SCH (08:06)
[2021-02-16] MEDS: FOLIC ACID 1 MG TAB PO SCH (08:06)
[2021-02-16] MEDS: CYANOCOBALAMIN 500 MCG TAB PO SCH (08:06)
--- NOTE | 2021-02-16 10:33 | P.CRDCN ---
History of Present Illness History of present illness: HISTORY OF PRESENTING ILLNESS This is a pleasant 80-year-old with past medical history significant for hypertension, hyperlipidemia, chronic systolic heart failure, atrial fibrillation, obesity, stroke with questionable dementia/mental status, coronary artery disease status post CABG, arthritis who presented secondary to persistent headaches and confusion approximate 2 weeks after a fall. Sees Dr. Tu Post for cardiology from [facility]. He initially presented 02/12/2021 sec ondary to the fall a few weeks ago which appeared mechanical in nature. He is on anticoagulation with Eliquis however CAT scan showed no acute process. Cardiology was consulted for congestive heart failure. Patient states that he has a history of "weakened heart "and had a heart catheterization. Patient states that during the heart catheterization there was no issue with possible perforation however appears more likely patient underwent CABG although patient is unsure. He states he had "veins taken from his chest as opposed from the legs. He does have sternotomy incision with sternotomy wires on chest x-ray. He denies any chest pain or pressure. Blood work performed with initial white blood cell count 6.9, hemoglobin 12.4, platelets 219, sodium 143, potassium 4.0, BUN 23, creatinine 1.2, glucose 107, total bilirubin 1.5, AST 25, ALP 15, CRP 7.6 moderate urine leukocyte Estrace, white blood cell urine 40, coronary varus negative. Patient is somewhat a poor historian however states he has been having some shortness breath and mild lower extremity edema. Normally on Lasix 20 mg twice a day at home. Unclear what his home medications are however he was placed on hydralazine 50 mg 3 times a day, apparent home dose of Imdur 60 mg daily, labetalol 100 mg twice a day, amlodipin e 5 mg twice a day, Eliquis 5 mg twice a day, Lipitor 80 mg daily. Pressures have been elevated with systolics 150s to 160s and diastolics 90s to 100s. Initially BUN went up to 27, creatinine 1.29 however yesterday was improved to 23/1.1. Echocardiogram performed 02/14/21 as ejection fraction 30-35% with global hypokinesis, dilated left atrium, moderately dilated right ventricle, severe tricuspid regurgitation, RVSP of 46. It does not appear patient has had a defibrilator placed in the past. REVIEW OF SYSTEMS At the time of my exam: CONSTITUTIONAL: Denies fever or chills. CARDIOVASCULAR: Denies chest pain, +shortness of breath, no orthopnea, PND or palpitations. RESPIRATORY: Denies cough. GASTROINTESTINAL: Denies abdominal pain, diarrhea, constipation, nausea or vomiting. MUSCULOSKELETAL: Denies myalgias. NEUROLOGIC: Denies numbness, tingling or weakness. +confusion ENDOCRINE: Denies fatigue, weight change, polydipsia or polyurina. GENITOURINARY: Denies burning, hematuria or urgency with micturation. HEMATOLOGIC: Denies history of anemia or bleeding. PHYSICAL EXAMINATION Vital signs reviewed. CONSTITUTIONAL: No apparent distress, obese, chronically ill appearing, poor his homero HEENT: Head is normocephalic. Pupils are equal, round. Sclerae anicteric. Mucous membranes of the mouth are moist. No JVD. No carotid bruit. CHEST EXAMINATION: Decreased breath sounds at bases, no wheeze HEART EXAMINATION: Irregular rate and rhythm. S1, S2 heard. +2/6 systolic murmur, no gallops or rub. ABDOMEN: Soft, nontender. Positive bowel sounds. EXTREMITIES: 2+ peripheral pulses, trace lower extremity edema and no calf tenderness. NEUROLOGIC EXAMINATION: Patient is awake, alert ASSESSMENT 1. Acute on chronic systolic heart failure 2. Cardiomyopathy with ejection fraction 30-35%, unclear previous 3. Coronary artery disease status post CABG (patient unclear of history but ap pears he has sternotomy wires and believes he may have had bypass) no current angina 4. Hypertension, uncontrolled 5. Hyperlipidemia 6. Persistent atrial fibrillation, appears predominantly controlled 7. Altered mental status, unclear baseline likely exacerbated by DAREN 8. UTI 9. Fall proximally 2 weeks ago, appears mechanical. No sign of any intracranial bleed on anticoagulation 10. Persistent headaches PLAN Patient appears mildly volume overloaded with some shortness breath. He has a cardiomyopathy with ejection fraction 30-35%, suspect some component of chronic cardiomyopathy with history of "weakened heart muscle "however has not had any defibrillator placement. Optimize heart failure regimen as able. Add losartan for improved afterload reduction with creatinine appearance stable. He does appear to be mildly volume overloaded and monitor response of diuresis. Attempt to obtain old records from senior administrator support. Continue anticoagulation for now. If patient has recurrent falls, may need to reassess if patient is good anticoagulation candidate however he has a history of strokes and would ideally continue anticoagulation. Past Medical History Past Medical History: Atrial Fibrillation, Cancer, Hypertension, Prostate Disorder Additional Past Medical History / Comment(s): Prostate cancer History of Any Multi-Drug Resistant Organisms: None Reported Past Surgical History: Coronary Bypass/CABG, Prostate Surgery Additional Past Surgical History / Comment(s): Bypass 2014, urostomy 2018, Prostate CA Past Psychological History: No Psychological Hx Reported Smoking Status: Former smoker Past Alcohol Use History: Occasional Past Drug Use History: None Reported - Past Family History unknown History Unknown: Yes Medications and Allergies Home Medications Medication Instructions Recorded Confirmed Type Apixaban [Eliquis] 5 mg PO BID 02/12/21 02/12/21 History Atorvastatin Calcium [Lipitor] 80 mg PO DAILY 02/12/21 02/12/21 History Furosemide [Lasix] 20 mg PO BID 02/12/21 02/12/21 History Isosorbide Mononitrate ER [Imdur] 60 mg PO DAILY 02/12/21 02/12/21 History Labetalol HCl 100 - 200 mg PO BID 02/12/21 02/12/21 History amLODIPine [Norvasc] 5 mg PO BID 02/12/21 02/12/21 History Allergies Allergy/AdvReac Type Severity Reaction Status Date / Time fentanyl Allergy Hallucinati Verified 02/12/21 14:19 ons latex Allergy Rash/Hives Verified 02/12/21 14:19 morphine Allergy Hallucinati Verified 02/12/21 14:19 ons Physical Exam Vitals: Vital Signs Temp Pulse Pulse Resp BP Pulse Ox 02/16/21 05:21 150/87 02/16/21 04:46 98.2 F 78 16 95 02/15/21 20:32 98.1 F 58 L 18 155/89 97 02/15/21 12:10 97.5 F L 76 18 164/103 95 Intake and Output 02/15/21 02/16/21 02/16/21 22:59 06:59 14:59 Intake Total 50 480 Output Total 800 1300 1375 Balance -800 -8434 -895 Intake: Intake, IV Titration 50 Amount cefTRIAXone 1 gm In 50 Sodium Chloride 0.9% 50 ml @ 100 mls/hr IVPB Q24H [facility] Rx#:[id number] Oral 480 Output: Urine 800 1300 1375 Other: Voiding Method Ileal Conduit (Right) Ileal Conduit (Right) Results 02/16/21 05:39 02/15/21 11:36 Cardiac Enzymes 02/15/21 Range/Units 11:36 AST 61 H (17-59) U/L CBC 02/15/21 02/16/21 Range/Units 11:36 05:39 WBC 4.8 5.5 (3.8-10.6) k/uL RBC 4.48 4.18 L (4.30-5.90) m/uL Hgb 13.2 12.0 L (13.0-17.5) gm/dL Hct 40.9 38.0 L (39.0-53.0) % Plt Count 247 225 (150-450) k/uL Comprehensive Metabolic Panel 02/15/21 Range/Units 11:36 Sodium 139 (137-145) mmol/L Potassium 4.8 (3.5-5.1) mmol/L Chloride 111 H (98-107) mmol/L Carbon Dioxide 24 (22-30) mmol/L BUN 23 H (9-20) mg/dL Creatinine 1.12 (0.66-1.25) mg/dL Glucose 103 H (74-99) mg/dL Calcium 9.2 (8.4-10.2) mg/dL AST 61 H (17-59) U/L ALT 28 (4-49) U/L Alkaline Phosphatase 78 (38-126) U/L Total Protein 6.9 (6.3-8.2) g/dL Albumin 3.5 (3.5-5.0) g/dL Current Medications Generic Name Dose Route Start Last Admin Trade Name Freq PRN Reason Stop Dose Admin Acetaminophen 650 mg 02/12/21 13:51 02/16/21 09:45 Acetaminophen Tab 325 Mg Tab PO 650 mg Q6HR PRN Administration Mild Pain or Fever > 100.5 Acetaminophen/Codeine Phosphate 1 each 02/13/21 11:23 02/14/21 20:48 Acetaminophen-Codeine 300-30mg Tab PO 1 each Q6HR PRN Administration Pain Amlodipine Besylate 5 mg 02/12/21 21:00 02/16/21 08:05 Amlodipine 5 Mg Tab PO 5 mg BID ANNIE Administration Apixaban 5 mg 02/12/21 21:00 02/16/21 08:05 Apixaban 5 Mg Tab PO 5 mg BID ANNIE Administration Protocol Atorvastatin Calcium 80 mg 02/12/21 18:00 02/16/21 08:06 Atorvastatin 80 Mg Tab PO 80 mg DAILY ANNIE Administration Cyanocobalamin 1,000 mcg 02/15/21 09:00 02/16/21 08:06 Cyanocobalamin 500 Mcg Tab PO 1,000 mcg DAILY ANNIE Administration Folic Acid 1 mg 02/13/21 12:00 02/16/21 08:06 Folic Acid 1 Mg Tab PO 1 mg DAILY@1200 ANNIE Administration Hydralazine HCl 50 mg 02/14/21 22:00 02/16/21 08:05 Hydralazine Hcl 50 Mg Tab PO 50 mg TID ANNIE Administration Ceftriaxone Sodium 1 gm/ 50 mls @ 100 mls/hr 02/13/21 04:00 02/16/21 05:23 Sodium Chloride IVPB 100 mls/hr Q24H ANNIE Administration Isosorbide Mononitrate 60 mg 02/12/21 18:00 02/16/21 08:05 Isosorbide Mononitrate Er 60 Mg Tab.Er.24h PO 60 mg DAILY ANNIE Administration Labetalol HCl 100 mg 02/12/21 21:00 02/16/21 08:05 Labetalol 100 Mg Tab PO 100 mg BID ANNIE Administration Loperamide HCl 2 mg 02/14/21 12:21 Loperamide 2 Mg Cap PO QID PRN Diarrhea Meclizine HCl 12.5 mg 02/15/21 11:21 Meclizine 12.5 Mg Tab PO BID PRN Vertigo Miscellaneous Information 1 each 02/12/21 20:31 Magnesium Replacement Protocol 1 Each Misc MISCELLANE DAILY PRN Per Protocol Protocol Miscellaneous Information 1 each 02/12/21 20:31 Potassium Replacement Protocol 1 Each Misc MISCELLANE DAILY PRN Per Protocol Protocol Multivitamins 1 each 02/13/21 12:00 02/15/21 12:43 Multivitamins, Thera 1 Each Tab PO 1 each DAILY@1200 ANNIE Administration Naloxone HCl 0.2 mg 02/12/21 13:51 Naloxone 0.4 Mg/Ml 1 Ml Vial IV Q2M PRN Opioid Reversal Pantoprazole Sodium 40 mg 02/13/21 07:30 02/16/21 08:06 Pantoprazole 40 Mg Tablet PO 40 mg [id number]-[id number] ANNIE Administration Quetiapine Fumarate 25 mg 02/15/21 21:00 02/15/21 20:29 Quetiapine 25 Mg Tab PO 25 mg HS ANNIE Administration Thiamine HCl 100 mg 02/13/21 12:00 02/15/21 12:43 Thiamine 100 Mg Tab PO 100 mg DAILY@1200 ANNIE Administration Intake and Output 02/15/21 02/16/21 02/16/21 22:59 06:59 14:59 Intake Total 50 480 Output Total 800 1300 1375 Balance -596 -9850 -896 Intake: Intake, IV Titration 50 Amount cefTRIAXone 1 gm In 50 Sodium Chloride 0.9% 50 ml @ 100 mls/hr IVPB Q24H [facility] Rx#:[id number] Oral 480 Output: Urine 800 1300 1375 Other: Voiding Method Ileal Conduit (Right) Ileal Conduit (Right) 02/16/21 05:39 02/15/21 11:36
--- NOTE | 2021-02-16 11:40 | XR ---
EXAMINATION TYPE: XR chest 2V DATE OF EXAM: 02/16/2021 COMPARISON: Chest x-ray 02/13/2021 HISTORY: Chest of heart failure TECHNIQUE: Frontal and lateral views of the chest are obtained. FINDINGS: The heart remains enlarged. There is no evident pneumothorax or pleural effusion. Central vascularity shows a similar appearance, the aorta is dense. Widening of the mediastinum shows a simil ar appearance. Prominent lung volume may be indicative of underlying COPD. Suspect underlying coronar y artery calcifications, no evident airspace disease. IMPRESSION: Cardiomegaly, there may be a component of chronic compensated failure.
[2021-02-16] MEDS: THIAMINE 100 MG TAB PO SCH (12:12)
[2021-02-16] MEDS: MULTIVITAMINS, THERA 1 EACH TAB PO SCH (12:12)
[2021-02-16] MEDS: LOSARTAN 50 MG TAB PO SCH (12:12)
[2021-02-16] MEDS: FUROSEMIDE 10 MG/ML 4 ML VIAL IV SCH (12:12)
[2021-02-16 13:42] LABS: African American GFR (CKD) 53.8 (60.0-200.0); Anion Gap 9.9 mmol/L (4.00-12.00); BUN/Creat Ratio 19.29 Ratio (12.00-20.00); Carbon Dioxide 20.1 mmol/L (21.6-31.8); Non-African American GFR(CKD) 46.5 (60.0-200.0); Potassium 4.4 mmol/L (3.5-5.5)
--- NOTE | 2021-02-16 13:53 | P.PN ---
Subjective Progress Note Date: 02/16/21 This is an 80-year-old male who was recently admitted with acute urinary tract infection with altered mental status on admission and is being closely monitored. Patient had some acute mental status changes possibly indicating acute delirium. Neurology following along with orthopedics and cardiology now following for congestive heart failure. Patient underwent a 2-D echo showing an EF of 30-35%. Patient's urine cultures preliminary showing gram-negative bacilli and maintained on IV antibiotics and will continue while awaiting for cultures are finalized. Patient also continues to have weakness and family working on placement in an assisted living facility called [facility] [place] which is closer to them. Patient appears to be more alert and oriented today with no overnight issues. Patient states he does have a mild headache and will continue Tylenol as needed. Cardiology following and has placed the patient on IV Lasix and will continue to monitor closely and repeat a.m. labs. BNP was found to be 2010. Patient states that he was having some mild dizziness noted when walking to the bathroom and has been evaluated by PT/OT therapy. Review of systems: Constitutional: No reports of fatigue, fever, or chills Cardiovascular: No reports of chest pain or palpitations Respiratory: No reports of shortness of breath or cough GI: No reports of nausea, vomiting, or diarrhea : No reports of dysuria or retention Neurovascular: Reports some generalized weakness and mild dizziness with position changes and walking All medications have been reviewed Objective - Vital Signs Vital signs: Vital Signs Temp 98.2 F 02/16/21 04:46 Pulse 78 02/16/21 04:46 Resp 16 02/16/21 04:46 BP 150/87 02/16/21 05:21 Pulse Ox 95 02/16/21 04:46 Intake & Output 02/15/21 02/16/21 02/16/21 18:59 06:59 18:59 Intake Total 50 480 Output Total 800 1300 1375 Balance -399 -4030 -807 Intake: Intake, IV Titration 50 Amount cefTRIAXone 1 gm In 50 Sodium Chloride 0.9% 50 ml @ 100 mls/hr IVPB Q24H [facility] Rx#:[id number] Oral 480 Output: Urine 800 1300 1375 Other: Voiding Method Ileal Conduit (Right) Ileal Conduit (Right) Ileal Conduit (Right) - Exam Gen: This is a 80-year-old male sitting up in the chair awake, alert and oriented 3, well-developed, well-nourished. HEENT: Head is atraumatic, normocephalic. Pupils equal, round. Sclerae is anicteric. NECK: Supple. No JVD. No lymphadenopathy. No thyromegaly. LUNGS: Diminished breath sounds bilaterally with no wheezing or rhonchi noted. No intercostal retractions. HEART: S1, S2 are muffled ABDOMEN: Soft. Obese. Bowel sounds are present. No masses. No tenderness. EXTREMITIES: No pedal edema. No calf tenderness. NEUROLOGICAL: Patient is awake, alert and oriented x3. Cranial nerves 2 through 12 are grossly intact. - Labs CBC & Chem 7: 02/16/21 05:39 02/15/21 11:36 Labs: Abnormal Lab Results - Last 24 Hours (Table) 02/15/21 02/15/21 02/16/21 Range/Units 11:36 11:36 05:39 RBC 4.18 L (4.30-5.90) m/uL Hgb 12.0 L (13.0-17.5) gm/dL Hct 38.0 L (39.0-53.0) % RDW 15.6 H (11.5-15.5) % Lymphocytes # 0.8 L 0.9 L (1.0-4.8) k/uL Chloride 111 H (98-107) mmol/L BUN 23 H (9-20) mg/dL Glucose 103 H (74-99) mg/dL AST 61 H (17-59) U/L Microbiology - Last 24 Hours (Table) 02/12/21 21:17 Blood Culture - Preliminary Blood No Growth after 72 hours Assessment and Plan Assessment: Acute urinary tract infection with possible sepsis, present on admission with gram-negative bacilli with finalized cultures pending, related to indwelling Lopez catheter Change in mental status acute metabolic encephalopathy, improving Congestive heart failure with chronic systolic dysfunction, ejection fraction 30-35% Acute renal failure possibly, present on admission History of recent stroke falling gait dysfunction Generalized asthenia Acute delirium Anemia, normocytic anemia possibly related to chronic anemia history of atrial fibrillation History of hypertension History of coronary artery disease, CABG Obesity with a body mass index of 36.6 Full code Plan: Continue with antibiotics in the form of ceftriaxone while awaiting for cultures to finalize with preliminary showing gram-negative bacilli. Multiple medical consultations including neurology, orthopedics, cardiology following. Patient was placed on IV Lasix as chest x-ray shows possible volume overload and will monitor for 24 hours. Patient continues to be dizzy with position changes and will use Antivert as needed and PT/OT therapy recommending rehab and family is arranging for assisted living at [facility] in [place] and will require a hospital bed secondary to his congestive heart failure as he needs to head of the bed elevated 45 and to assist with position changes as well. Will repeat labs and await culture finalization with possible discharge in 24 hours.
[2021-02-16] MEDS: QUEtiapine 25 MG TAB PO SCH (21:31)
[2021-02-17] MEDS: ISOSORBIDE MONONITRATE ER 60 MG TAB.ER.24H PO SCH (09:05)
[2021-02-17] MEDS: FOLIC ACID 1 MG TAB PO SCH (09:05)
[2021-02-17] MEDS: LOSARTAN 50 MG TAB PO SCH (09:07)
[2021-02-17] MEDS: CYANOCOBALAMIN 500 MCG TAB PO SCH (09:07)
[2021-02-17] MEDS: ATORVASTATIN 80 MG TAB PO SCH (09:07)
[2021-02-17] MEDS: hydrALAZINE HCL 50 MG TAB PO SCH ×2 (09:07→16:17)
[2021-02-17] MEDS: MULTIVITAMINS, THERA 1 EACH TAB PO SCH (09:07)
[2021-02-17] MEDS: PANTOPRAZOLE 40 MG TABLET PO SCH (09:07)
[2021-02-17] MEDS: THIAMINE 100 MG TAB PO SCH (09:07)
[2021-02-17] MEDS: LABETALOL 100 MG TAB PO SCH ×2 (09:07→20:21)
[2021-02-17] MEDS: APIXABAN 5 MG TAB PO SCH ×2 (09:08→20:21)
[2021-02-17 09:40] LABS: African American GFR (CKD) 62 (>60 ml/min/1.73 sqM); Anion Gap 8 mmol/L; Blood Urea Nitrogen 24 mg/dL (9-20); Calcium 9.5 mg/dL (8.4-10.2); Carbon Dioxide 23 mmol/L (22-30); Chloride 110 mmol/L (98-107); Glucose 209 mg/dL (74-99); Non-African American GFR(CKD) 54 (>60 ml/min/1.73 sqM); Sodium 141 mmol/L (137-145)
[2021-02-17] MEDS: FUROSEMIDE 10 MG/ML 4 ML VIAL IV SCH (10:25)
--- NOTE | 2021-02-17 10:52 | P.PN ---
Subjective This is a pleasant 80-year-old male past medical history significant for hypertension, dyslipidemia, chronic systolic heart failure, chronic persistent atrial fibrillation, coronary artery disease status post bypass grafting and obesity. He follows in the office with a mill supervisor at [facility], Dr. Hernandez. He is seen and examined sitting up in recliner in no acute distress. He still seems confused. He states his breathing is the same with no real improvement. He denies chest pain. He received IV lasix yesterday and had 5.7 liters of urine output. Laboratory data reviewed, sodium 141, potassium 4.0, creatinine 1.25. GENERAL: Well-appearing, well-nourished and in no acute distress. NECK: Supple without JVD or thyromegaly. LUNGS: Breath sounds clear to auscultation bilaterally. Respiration equal and unlabored. No wheezes, rales or rhonchi. HEART: Irregular rate and rhythm with systolic ejection murmurs, rubs or gal lops. S1 and S2 heard. EXTREMITIES: Normal range of motion, trace non-pitting edema. No clubbing or cyanosis. Peripheral pulses intact. ASSESSMENT Acute on chronic systolic heart failure Coronary artery disease s/p bypass grafting, exact details unavailable Hypertension Dyslipidemia Chronic persistent atrial fibrillation Altered mental status Urinary tract infection Persistent headaches Moderate MR Severe TR Moderate pulmonary hypertension PLAN Transition to oral diuretics. Continue eliquis for thromboembolic protection. Follow up with his primary mill supervisor upon discharge, unless he plans to stay in town then he can follow with Dr. Mahan. Nurse Practitioner note has been reviewed, I agree with a documented findings and plan of care. Patient was seen and examined. Objective - Vital Signs Vital signs: Vital Signs Temp 98.1 F 02/17/21 04:52 Pulse 73 02/17/21 04:52 Resp 18 02/17/21 04:52 BP 171/106 02/17/21 04:52 Pulse Ox 95 02/17/21 04:52 Intake & Output 02/16/21 02/17/21 02/17/21 18:59 06:59 18:59 Intake Total 480 170 Output Total 1852 3179 Balance -4262 -1184 Intake: IV 120 ns@10 120 Intake, IV Titration 50 Amount cefTRIAXone 1 gm In 50 Sodium Chloride 0.9% 50 ml @ 100 mls/hr IVPB Q24H [facility] Rx#:[id number] Oral 480 Output: Urine 5301 9530 Other: Voiding Method Ileal Conduit (Right) Ileal Conduit (Right) - Labs CBC & Chem 7: 02/16/21 05:39 02/17/21 09:00 Labs: Abnormal Lab Results - Last 24 Hours (Table) 02/16/21 02/17/21 Range/Units 05:39 09:00 Chloride 113 H 110 H (96-109) mmol/L Carbon Dioxide 20.1 L (21.6-31.8) mmol/L BUN 24 H (9-20) mg/dL Est GFR (CKD-EPI)AfAm 53.8 L (60.0-200.0) Est GFR (CKD-EPI)NonAf 46.5 L (60.0-200.0) Glucose 209 H (74-99) mg/dL Microbiology - Last 24 Hours (Table) 02/12/21 21:17 Blood Culture - Preliminary Blood No Growth after 96 hours 02/12/21 12:58 Urine Culture - Final Urine,Voided Providencia rettgeri
[2021-02-17] MEDS: FUROSEMIDE 20 MG TAB PO SCH ×2 (11:09→16:17)
[2021-02-17 13:07] VITALS: RESP 20
[2021-02-17 15:29] VITALS: BMI 36.6
--- NOTE | 2021-02-17 16:13 | P.DS ---
Providers Date of admission: 02/14/21 11:11 Expected date of discharge: 02/17/21 Attending physician: Rayna Sampson Consults: 02/12/21 13:52 Consult Physician Routine Consulting Provider: Vini Dickerson Consult Reason/Comments: AMS Do you want consulting provider notified?: Yes 02/13/21 08:48 Consult Physician Routine Consulting Provider: Juan Campo Consult Reason/Comments: moderate to severe cervical spondylosis Do you want consulting provider notified?: Yes 02/15/21 17:33 Consult Physician Routine Consulting Provider: Komal Olson Consult Reason/Comments: chf Do you want consulting provider notified?: Yes Primary care physician: Physician Nonstaff Hospital Course: Final diagnosis Acute urinary tract infection with possible sepsis, present on admission with cultures finalized showing Providencia rettgeri, related to indwelling Lopez catheter Change in mental status acute metabolic encephalopathy, improved Congestive heart failure with chronic systolic dysfunction, ejection fraction 30-35% Acute renal failure possibly, present on admission History of recent stroke falling gait dysfunction Generalized asthenia Acute delirium Anemia, normocytic anemia possibly related to chronic anemia history of atrial fibrillation History of hypertension History of coronary artery disease, CABG Obesity with a body mass index of 36.6 Full code Discharge disposition Patient is being discharged in a stable condition with guarded prognosis to [facility] in [place]. Patient will follow-up with his primary care provider in the outpatient setting upon discharge. Patient is to continue with oral Cipro 500 mg twice daily for the next 5 days to complete the course. Patient will also follow-up with orthopedics in the outpatient setting along with his c ardiologist on discharge. Total time taken is greater than 35 minutes. Hospital course This is an 80-year-old male who was recently admitted with acute urinary tract infection with altered mental status on admission and is being closely monitored. Patient had some acute mental status changes possibly indicating acute delirium. Neurology following along with orthopedics and cardiology now following for congestive heart failure. Patient underwent a 2-D echo showing an EF of 30-35%. Patient's urine cultures preliminary showing gram-negative bacilli and maintained on IV antibiotics and will continue while awaiting for cultures are finalized. Patient also continues to have weakness and family working on placement in an assisted living facility called [facility] which is closer to them. Patient appears to be more alert and oriented today with no overnight issues. Patient states he does have a mild headache and will continue Tylenol as needed. Cardiology following and has placed the patient on IV Lasix and will continue to monitor closely and repeat a.m. labs. BNP was found to be 2010. Patient states that he was having some mild dizziness noted when walking to the bathroom and has been evaluated by PT/OT therapy. 02/17/2021 Patient is seen in follow-up this morning with no acute overnight issues. Patient was being treated with IV ceftriaxone and we'll transition to oral Cipro 500 mg twice daily for the next 5 days to complete the course with urinary cultures finalized showing Providencia rettgeri with sensitivities. Patient will also continue with meclizine as needed and was transitioned oral Lasix 20 mg twice daily and will continue. Follow-up closely with primary care provider along with orthopedics outpatient and his resolution manager or Dr. Mahan if he plans on keeping providers out in this area. Patient to use a walker while walking. Recommend slow position changes and sitting up at the side of the bed around the chair for 1-2 minutes prior to getting up and walking. Currently no reports of chest pain, shortness of breath, or palpitations. Patient is afebrile. No reports of nausea or vomiting and patient is tolerating diet. Patient will be discharged today. On exam vital signs are stable. Cardio S1, S2 are muffled. Respiratory system shows diminished breath sounds at the bases with no wheezing or rhonchi noted. Abdomen is soft and nontender. Nervous system shows no focal deficits. Please refer to medication reconciliation sheet for a list of medications. Patient Condition at Discharge: Stable Plan - Discharge Summary Discharge Rx Participant: No New Discharge Prescriptions: New Ciprofloxacin HCl [Cipro] 500 mg PO BID 5 Days #10 tab Losartan [Cozaar] 50 mg PO DAILY 30 Days #30 tab Folic Acid 1 mg PO DAILY@1200 #30 tab Loperamide [Imodium] 2 mg PO QID PRN #20 cap PRN Reason: Diarrhea Multivitamins, Thera [Multivitamin (formulary)] 1 each PO DAILY@1200 #30 tab QUEtiapine [SEROquel] 25 mg PO HS 30 Days #30 tab Thiamine [Vitamin B-1] 100 mg PO DAILY@1200 #30 tab Cyanocobalamin [Vitamin B-12] 1,000 mcg PO DAILY #30 tab Meclizine [Antivert] 12.5 mg PO BID PRN #30 tab PRN Reason: Vertigo hydrALAZINE HCL [Apresoline] 50 mg PO TID 30 Days #90 tab Pantoprazole [Protonix] 40 mg PO AC-BRKFST 30 Days #30 tablet. Acetaminophen Tab [Tylenol] 650 mg PO Q6HR PRN #30 tab PRN Reason: Mild Pain Or Fever > 100.5 Continue Isosorbide Mononitrate ER [Imdur] 60 mg PO DAILY Furosemide [Lasix] 20 mg PO BID Atorvastatin Calcium [Lipitor] 80 mg PO DAILY Apixaban [Eliquis] 5 mg PO BID Changed Labetalol HCl 100 mg PO BID #0 Discontinued amLODIPine [Norvasc] 5 mg PO BID Discharge Medication List Apixaban [Eliquis] 5 mg PO BID 02/12/21 [History] Atorvastatin Calcium [Lipitor] 80 mg PO DAILY 02/12/21 [History] Furosemide [Lasix] 20 mg PO BID 02/12/21 [History] Isosorbide Mononitrate ER [Imdur] 60 mg PO DAILY 02/12/21 [History] Acetaminophen Tab [Tylenol] 650 mg PO Q6HR PRN #30 tab 02/17/21 [Rx] Ciprofloxacin HCl [Cipro] 500 mg PO BID 5 Days #10 tab 02/17/21 [Rx] Cyanocobalamin [Vitamin B-12] 1,000 mcg PO DAILY #30 tab 02/17/21 [Rx] Folic Acid 1 mg PO DAILY@1200 #30 tab 02/17/21 [Rx] Labetalol HCl 100 mg PO BID #0 02/17/21 [Rx] Loperamide [Imodium] 2 mg PO QID PRN #20 cap 02/17/21 [Rx] Losartan [Cozaar] 50 mg PO DAILY 30 Days #30 tab 02/17/21 [Rx] Meclizine [Antivert] 12.5 mg PO BID PRN #30 tab 02/17/21 [Rx] Multivitamins, Thera [Multivitamin (formulary)] 1 each PO DAILY@1200 #30 tab 02/17/21 [Rx] Pantoprazole [Protonix] 40 mg PO AC-BRKFST 30 Days #30 tablet. 02/17/21 [Rx] QUEtiapine [SEROquel] 25 mg PO HS 30 Days #30 tab 02/17/21 [Rx] Thiamine [Vitamin B-1] 100 mg PO DAILY@1200 #30 tab 02/17/21 [Rx] hydrALAZINE HCL [Apresoline] 50 mg PO TID 30 Days #90 tab 02/17/21 [Rx] Follow up Appointment(s)/Referral(s): Mehran Polanco, SAMAN [PHYSICIAN COIN BOX COLLECTOR] - 03/16/21 9:30 am Baron Mahan DO [STAFF PHYSICIAN] - 2 Weeks Nonstaff,Physician [Primary Care Provider] - 1-2 days Activity/Diet/Wound Care/Special Instructions: Activity Limited until follow-up Follow-up with primary care provider upon discharge Follow-up with your resolution manager upon discharge Continue with antibiotics for 5 days and then may discontinue Continue with Antivert as needed for dizziness Continue with Imodium as needed for diarrhea Follow-up orthopedics outpatient Continue to use a walker Discharge Disposition: TRANSFER TO SNF/ECF
[2021-02-17 19:21] VITALS: BP 176/95; PULSE 63; TEMP 97.7
[2021-02-17] MEDS: QUEtiapine 25 MG TAB PO SCH (20:21)
== END 2021-02-17 21:06 | disposition home health service (06) | DRG 698 ==
LOC: EC 10:01 → 5NMEDONC 13:52 → OBSVTOIN 02-14 11:11
PROVIDERS: ADMIT Hospitalist; ATTEND Hospitalist
DX: T83.518A Infection and inflammatory reaction due to other urinary catheter, initial encounter (principal); A41.59 Other Gram-negative sepsis; R65.20 Severe sepsis without septic shock; I50.23 Acute on chronic systolic (congestive) heart failure; G93.41 Metabolic encephalopathy; N17.9 Acute kidney failure, unspecified; I42.9 Cardiomyopathy, unspecified; I48.19 Other persistent atrial fibrillation; N39.0 Urinary tract infection, site not specified; I27.20 Pulmonary hypertension, unspecified; D63.8 Anemia in other chronic diseases classified elsewhere; I11.0 Hypertensive heart disease with heart failure; F03.90 Unspecified dementia, unspecified severity, without behavioral disturbance, psychotic disturbance, mood disturbance, and anxiety; Z20.822 Contact with and (suspected) exposure to COVID-19; M47.812 Spondylosis without myelopathy or radiculopathy, cervical region; M47.817 Spondylosis without myelopathy or radiculopathy, lumbosacral region; I25.10 Atherosclerotic heart disease of native coronary artery without angina pectoris; E78.5 Hyperlipidemia, unspecified; I07.1 Rheumatic tricuspid insufficiency; S09.90XA Unspecified injury of head, initial encounter; M19.90 Unspecified osteoarthritis, unspecified site; M25.551 Pain in right hip; R26.9 Unspecified abnormalities of gait and mobility; H91.90 Unspecified hearing loss, unspecified ear; E66.9 Obesity, unspecified; Z68.36 Body mass index [BMI] 36.0-36.9, adult; Z79.01 Long term (current) use of anticoagulants; Z79.899 Other long term (current) drug therapy; Z95.1 Presence of aortocoronary bypass graft; Z85.46 Personal history of malignant neoplasm of prostate; Z87.891 Personal history of nicotine dependence; Z98.1 Arthrodesis status; Z91.81 History of falling; Z86.73 Personal history of transient ischemic attack (TIA), and cerebral infarction without residual deficits; Z93.6 Other artificial openings of urinary tract status; Z71.3 Dietary counseling and surveillance; Y84.6 Urinary catheterization as the cause of abnormal reaction of the patient, or of later complication, without mention of misadventure at the time of the procedure; W01.0XXA Fall on same level from slipping, tripping and stumbling without subsequent striking against object, initial encounter; Z88.5 Allergy status to narcotic agent; Z91.040 Latex allergy status
CPT/HCPCS: 36415; 70450; 71045; 71046; 72125; 72131; 80048; 80053; 81001; 82607; 82746; 83036; 83735; 83880; 84443; 85025; 85610; 85652; 85730; 86140; 87040; 87077; 87086; 87186; 87635; 93306; 99285